=== PATIENT | male | born 1975 | race Caucasian/White ===

== ENCOUNTER → 2020-11-18 | Outpatient (CLI) | payer BC ==
[~2020-11-18] MED LIST: ZANTAC150 MG PO
== END ==
LOC: MRI 14:28
DX: S83.242A Other tear of medial meniscus, current injury, left knee, initial encounter (principal); R60.0 Localized edema; S80.12XA Contusion of left lower leg, initial encounter; S70.12XA Contusion of left thigh, initial encounter; X50.1XXA Overexertion from prolonged static or awkward postures, initial encounter
CPT/HCPCS: 73721

== ENCOUNTER → 2022-06-28 | Outpatient (CLI) | payer BC | LOC: EXRD 08:30 | DX: K76.0 Fatty (change of) liver, not elsewhere classified (principal) | CPT/HCPCS: 76705 ==